=== PATIENT | male | born 1955 | race Two or more races ===

== ENCOUNTER 2020-05-04 05:54 | Day surgery (SDC) | payer OTHER ==
[~2020-05-04 05:54] MED LIST: ALLER-TEC10 MG PO; ASPIR 8181 MG PO; COZAAR100 MG PO; FENOFIBRATE150 MG PO; LIPITOR20 MG PO; NEXIUM40 M1 PO; NORVASC5 MG PO; PEPCID AC20 MG PO; SINGULAIR10 MG PO; TOPROL XL50 M1 PO; ZYLOPRIM300 MG PO
[2020-05-04] MEDS ORDERED: ULTRACET PO (16:37)
[2020-05-04] MEDS ORDERED: NEURONTIN600 M1 PO (16:39)
== END 2020-05-04 18:30 | disposition home or self-care (01) ==
LOC: CIR.AMB 05:54 → EDBD 13:45 → CIR.AMB 18:30
PROVIDERS: ATTEND Surgery
DX: K80.10 Calculus of gallbladder with chronic cholecystitis without obstruction (principal)

== ENCOUNTER 2021-02-06 11:35 | Outpatient (CLI) | payer OTHER ==
[~2021-02-06 11:35] MED LIST changes: +NEURONTIN600 M1 PO; +ULTRACET PO
== END 2021-02-06 11:45 | disposition home or self-care (01) ==
LOC: SONOGRAMA 11:35
PROVIDERS: ATTEND Pathology Anatomic Pathology & Clinical Pathology
DX: E04.1 Nontoxic single thyroid nodule (principal)